=== PATIENT | female | born 1960 | race Caucasian/White ===

== ENCOUNTER 2018-06-18 06:24 | Day surgery (SDC) | payer OTHER ==
[2018-06-18] MEDS ORDERED: MIDAZOLAM 1 MG/ML 2 ML INJ ×2 (09:26)
[2018-06-18] MEDS ORDERED: MEPERIDINE 50 MG INJ (09:27)
== END 2018-06-18 11:29 | disposition home or self-care (01) ==
LOC: GIL 06:24
DX: Z12.11 Encounter for screening for malignant neoplasm of colon (principal); K29.50 Unspecified chronic gastritis without bleeding; K64.8 Other hemorrhoids
CPT/HCPCS: 43239; 88305; 88312